=== PATIENT | female | born 1995 | race Caucasian/White ===

== ENCOUNTER 2016-12-11 23:57 | Emergency (ER) | payer OTHER ==
[~2016-12-11] VITALS: Ht 157.5 cm; Wt 65.0 kg
[2016-12-12] VITALS: Ht 157.5 cm; Wt 65.0 kg
[2016-12-12] MEDS ORDERED: HYDROCODONE/APAP (5/325) TAB PO ONE (01:00)
[2016-12-12] MEDS ORDERED: ONDANSETRON (ODT) 4 MG TAB ODT STA (01:02)
--- NOTE | 2016-12-12 01:02 | ERD ---
ER Documentation Chief Complaint Date/Time DATE: 12/12/16 TIME: 01:00 Chief Complaint c/o right sided flank pain. States (+) hematuria. HPI This is a 20-year-old female who presents the emergency department today complaining of some right-sided flank pain and pain with urination for the past 4 days. States she does have some nausea. Denies any fevers or chills. ROS All systems reviewed and are negative except as per history of present illness. Medications Home Meds Active Scripts Ondansetron Hcl* (Zofran*) 4 Mg Tablet, 4 MG PO Q6H for NAUSEA AND/OR VOMITING, #30 TAB Prov:GABBY JONAS PA-C 12/12/16 Naproxen* (Naprosyn*) 500 Mg Tablet, 500 MG PO BID Y for PAIN AND/OR INFLAMMATION, #30 TAB Prov:GABBY JONAS PA-C 12/12/16 Cephalexin* (Keflex*) 500 Mg Capsule, 500 MG PO QID for 7 Days, CAP Prov:GABBY JONASC 12/12/16 Allergies Allergies: Coded Allergies: No Known Allergy (Unverified , 12/12/16) PMhx/Soc Medical and Surgical Hx: pt denies Medical Hx, pt denies Surgical Hx Hx Alcohol Use: Yes (once/ month) Hx Substance Use: Yes (marijuana daily) Hx Tobacco Use: No Smoking Status: Never smoker Physical Exam Vitals Vital Signs Date Time Temp Pulse Resp B/P Pulse Ox O2 Delivery O2 Flow Rate FiO2 12/12/16 00:00 97.8 79 18 103/52 83 Physical Exam Const: NAD Head: Atraumatic Eyes: Normal Conjunctiva ENT: Normal External Ears, Nose and Mouth. Neck: Full range of motion..~ No meningismus. Resp: Clear to auscultation bilaterally Cardio: Regular rate and rhythm, no murmurs Abd: Soft,mild suprapubic tenderness non distended. Normal bowel sounds. No tenderness at [place]' Skin: No petechiae or rashes Back: No midline areas. Right-sided flank pain. No CVA tenderness. Ext: No cyanosis, or edema Neur: Awake and alert Psych: Normal Mood and Affect Results 24 hrs Laboratory Tests Test 12/12/16 00:37 Urine Color YELLOW Urine Clarity CLOUDY Urine pH 5.0 Urine Specific [place] 1.021 Urine Ketones NEGATIVEmg/dL Urine Nitrite NEGATIVEmg/dL Urine Bilirubin NEGATIVEmg/dL Urine Urobilinogen NEGATIVEmg/dL Urine Leukocyte Esterase 3+Lori/ul Urine Microscopic RBC 30/HPF Urine Microscopic WBC 74/HPF Urine Squamous Epithelial Cells MODERATE/HPF Urine Bacteria FEW/HPF Urine Mucus FEW/HPF Urine Yeast (Budding) FEW/HPF Urine Hemoglobin 2+mg/dL Urine Glucose NEGATIVEmg/dL Urine Total Protein 1+mg/dl Current Medications Medications (Trade) Dose Ordered Sig/Birdie Route PRN Reason Start Time Stop Time Status Last Admin Dose Admin Acetaminophen/ Hydrocodone Bitart (Jefferson (5/325)) 1 tab ONCE ONCE PO 12/12/16 01:00 12/12/16 01:01 DC 12/12/16 00:46 Ondansetron HCl (Zofran Odt) 4 mg ONCE STAT ODT 12/12/16 01:02 12/12/16 01:03 DC 12/12/16 01:16 Ceftriaxone Sodium (Rocephin) 1 gm ONCE ONCE IM 12/12/16 02:30 12/12/16 02:31 Lidocaine (Xylocaine 1% (Mdv) 20 ml) 20 ml ONCE ONCE SC 12/12/16 02:30 12/12/16 02:31 Procedures/MDM This is a 20-year-old female who presents the emergency department today complaining of right-sided flank pain and some pain with urination. Patient is afebrile and otherwise well-appearing. I did obtain a UA UA 3+ leukocyte esterase 30 microscopic red blood cells and 74 microscopic white blood cells. Urine was sent for culture test is negative Patient was given Jefferson and Zofran here in the emergency department and she reported pain improved. Symptoms at this time is consistent with urinary tract infection and possibly early pyelonephritis. Patient is afebrile and otherwise well-appearing. She has no CVA tenderness and I have low suspicion for septic stone however given patient's significant hematuria I cannot rule out nephrolithiasis although I do have lower suspicion for this. Patient is walking around the emergency room on her phone in no acute distress. Patient was given Im Rocephin here in the emergency department and she will be given a prescription for Naprosyn, zofran, and Keflex for home. At this time the patient is stable for discharge and outpatient management. Patient should follow up with their PCP in the next 1-2 days. They may return to the emergency department sooner for any persistent or worsening of symptoms. Patient understood and agreed with the plan. Departure Diagnosis: Primary Impression: Flank pain Additional Impression: UTI (urinary tract infection) Urinary tract infection type: acute cystitis Hematuria presence: with hematuria Qualified Code: N30.01 - Acute cystitis with hematuria Condition: GABBY Rain PA-C Dec 12, 2016 01:02
[2016-12-12 02:01] LABS: ADD UMIC YES; UR ASCORBIC ACID NEGATIVE (NEGATIVE); UR BACTERIA FEW /HPF (NONE SEEN); UR BILIRUBIN (Dip) NEGATIVE (NEGATIVE); UR BLOOD (Dip) 2+ mg/dL (NEGATIVE); UR BUDDING YEAST FEW /HPF (NONE SEEN); UR CLARITY CLOUDY (CLEAR); UR COLOR YELLOW (YELLOW); UR GLUCOSE (Dip) NEGATIVE (NEGATIVE); UR KETONES (Dip) NEGATIVE (NEGATIVE); UR LEUKOCYTE ESTERASE (Dip) 3+ Leu/ul (NEGATIVE); UR MUCUS FEW /HPF (NONE SEEN); UR NITRITE (Dip) NEGATIVE (NEGATIVE); UR NONSQUAMOUS EPITHELIAL CELL 2 /HPF (NONE SEEN); UR RBC 30 /HPF (0-5); UR SPECIFIC GRAVITY (Dip) 1.021 (1.003-1.030); UR SQUAMOUS EPITHELIAL CELL MODERATE /HPF (FEW); UR TOTAL PROTEIN (Dip) 1+ mg/dl (NEGATIVE); UR UROBILINOGEN (Dip) NEGATIVE (NEGATIVE)
[2016-12-12] MEDS ORDERED: CEPH-443 PO (02:12)
[2016-12-12] MEDS ORDERED: NAPR-260 PO (02:13)
[2016-12-12] MEDS ORDERED: ONDA4TAB8 PO (02:13)
[2016-12-12] MEDS ORDERED: CEFTRIAXONE 1 GM INJ IM ONE (02:30)
[2016-12-12] MEDS ORDERED: LIDOCAINE 1% (MDV) 20 ML INJ SC ONE (02:30)
[2016-12-12 02:35] VITALS: BP 98/52; PULSE 70; RESP 17; TEMP 98.7
== END 2016-12-12 02:35 | disposition home or self-care (01) ==
LOC: FTE 23:57
DX: N30.01 Acute cystitis with hematuria (principal)
CPT/HCPCS: 81001; 87086; 96372; J0696; Z7502; Z7610